=== PATIENT | male | born 1945 | race Caucasian/White ===

== ENCOUNTER 2018-05-17 09:02 | Observation (INO) | payer MEDICARE, OTHER ==
[~2018-05-17] VITALS: Ht 180.3 cm; Wt 107.0 kg
[~2018-05-17 09:02] MED LIST: AMLODIPINE BESY10 MG PO; ASPIR 8181 MG PO; ATORVASTATIN CA40 MG PO; LOSARTAN POTASS25 MG PO
[2018-05-17] MEDS ORDERED: KETOROLAC TROMETHAMINE 30 MG/ML VIAL IV NR (09:45)
--- NOTE | 2018-05-17 10:30 | Diagnostic Imaging Report ---
EXAM: CT Abdomen and Pelvis WITHOUT contrast INDICATION: Flank pain COMPARISON: None. TECHNIQUE: Abdomen and Pelvis was scanned utilizing a multidetector helical scanner without the use of IV contrast. Coronal and sagittal reformations were obtained. IV CONTRAST: None COMPLICATIONS: None RADIATION DOSE: Total DLP: 716 mGy*cm Estimated effective dose: (DLP x 0.015 x size factor) mSv CTDIvol has been reviewed. It is below the limits set by the Radiation Protocol Committee (RPC). FINDINGS: Abdomen: Lung Bases: No acute findings. Solid Organs: Several hepatic hypodensities incompletely evaluated without IV contrast large or suggest cysts, larger To small to characterize. Nonenhanced images of the adrenal glands, spleen, and pancreas unremarkable. There is moderate stranding about the right kidney with a 10 mm calculus in the proximal right ureter with mild to moderate right hydronephrosis. Tiny nonobstructing calculus inferior left kidney present. Upper GI Tract: Small hiatal hernia. No small bowel obstructive changes. Vascularity: Mild aortic vascular calcifications with no aneurysm. Lymph Nodes: No suspicious adenopathy. Other: Ventral hernia repair changes. Pelvis: Bladder: Decompressed, limiting adequate evaluation. Other: None. Colon: No acute colonic findings. Bones: Moderate degenerative changes spine. IMPRESSION: 1. 10 mm proximal right ureteral calculus with mild to moderate right hydronephrosis. Signed by: Dr. Glenn Solorio MD on 05/17/2018 10:27 AM
[2018-05-17 10:47] LABS: BASOPHILS % 0.3 % (0.0-1.0); EOSINOPHILS % 0.3 % (0.0-6.0); HEMATOCRIT 41.6 % (38.2-49.6); HEMOGLOBIN 14.8 g/dL (14.0-18.0); LYMPHOCYTES # (AUTO) 1.7 (1.0-3.2); MEAN CORPUSCULAR HEMOGLOBIN 31.2 pg (28-32); MEAN CORPUSCULAR HGB CONC 35.6 g/dL (31-35); MEAN CORPUSCULAR VOLUME 87.6 fL (81-99); MONOCYTES # (AUTO) 0.8 (0.2-0.8); MONOCYTES % 6.8 % (4.4-11.3); NEUTROPHILS # (AUTO) 9.3 (2.1-6.9); PLATELET COUNT 238 x10e3/uL (140-360); RED BLOOD COUNT 4.75 x10e6/uL (4.3-5.7); RED CELL DISTRIBUTION WIDTH 12.2 % (11.7-14.4)
[2018-05-17] MEDS ORDERED: CEFTRIAXONE SOD 1 GM VIAL ONE (12:43)
[2018-05-17] MEDS ORDERED: SODIUM CHLORIDE 0.9% 1000ML 1,000 ML ONE (12:43)
[2018-05-17] MEDS: SODIUM CHLORIDE 0.9% 1000ML 1,000 ML IV SCH ×2 (13:00→20:32)
[2018-05-17] MEDS ORDERED: CEFTRIAXONE SOD 1 GM VIAL IV ONE (13:00)
--- NOTE | 2018-05-17 14:52 | History and Physical ---
CHIEF COMPLAINT: Right-sided abdominal/flank pain. HISTORY OF PRESENT ILLNESS: This 72-year-old white man presents to [facility] emergency room with intense intermittent right flank pain. The patient states that the pain actually began 2 days prior to admission, but resolved spontaneously. The patient states that on the day of admission, namely today, the pain reoccurred and was so intense it caused him to become nauseous. In the emergency room, the patient underwent a CT of the abdomen and pelvis without contrast which revealed a urinary calculus in the right proximal ureter measuring approximately [address] of the abdomen and pelvis also revealed hydronephrosis. The patient was also found to have hematuria on urinalysis. The patient was admitted for further evaluation and treatment. REVIEW OF SYSTEMS GENERAL: No fever or chills. Weight has been stable. HEENT: No headaches; no visual changes. CARDIOVASCULAR: No chest pain, no cough. GI: Nausea today with right-sided flank pain. No vomiting, no diarrhea. The patient was experiencing right lumbar abdominal pain. : Dark urine that began this morning. Denies any gross hematuria. NEUROMUSCULAR: Complains of right flank pain as well as right lumbar abdominal pain that started 2 days ago, but became much more intense today. FAMILY HISTORY: Father of myocardial infarction at age 61. His mother lived to be 99 years old. SOCIAL HISTORY: He is retired and lives with his . No history of tobacco use. He drinks alcohol in the form of beer, usually 2 beers a day. ALLERGIES: NO KNOWN DRUG ALLERGIES. PAST SURGICAL HISTORY: 1. Cataract surgery. 2. Laparoscopic cholecystectomy. 3. Abdominal hernia repair with mesh. 4. Right-sided tympanostomy tube placement. PAST MEDICAL HISTORY: 1. Hypertension. 2. Mild obesity. 3. Hyperlipidemia. MEDICATIONS: 1. Amlodipine 10 mg daily. 2. Atorvastatin 40 mg nightly. 3. Losartan 25 mg daily. PHYSICAL EXAMINATION GENERAL: He is awake, alert, in no acute distress, very pleasant and cooperative to exam. VITAL SIGNS: Blood pressure 140/80, heart rate 82, respiratory rate 16. He is afebrile. Height is 5 feet 11 inches, weight 235 pounds. BMI is 32. INTEGUMENT: Skin is warm and dry. No pallor, jaundice, diaphoresis. HEENT: Anicteric sclerae with moist mucous membranes. NECK: Supple. CARDIOVASCULAR: Regular rate and rhythm. LUNGS: No rales, rhonchi or wheezes. ABDOMEN: Obese. He does have tenderness on palpating the right upper quadrant and right flank area. EXTREMITIES: No edema or deformity. SPINE/TORSO: The patient has mild right costovertebral angle tenderness. NEUROLOGIC: Intact. DIAGNOSES 1. Right ureterolithiasis with right hydronephrosis. 2. Hypertension. 3. Obesity. BMI 32. PLAN: 1. Intravenous fluids. 2. Pain control. 3. Antiemetics. 4. Consult urology. 5. Follow renal function. I spent 45 minutes in the care of this patient. Job#: [id number]
[2018-05-17] MEDS ORDERED: ONDANSETRON HCL INJ 2 MG/ML VIAL IV PRN ×2 (15:00→16:30)
[2018-05-17] MEDS ORDERED: HYDROMORPHONE 1MG/1ML INJ IV PRN (15:00)
[2018-05-17] MEDS ORDERED: SODIUM CHLORIDE 0.9% 1000ML 1,000 ML IV SCH (16:18)
[2018-05-17] MEDS ORDERED: FENTANYL CITRATE/PF 100MCG/2 ML INJ ONE (17:55)
[2018-05-17] MEDS ORDERED: MIDAZOLAM HCL 2 MG/2 ML VIAL ONE (17:55)
[2018-05-17 18:22] LABS: CLARITY,URINE HAZY (CLEAR); COLOR,URINE YELLOW (YELLOW); KETONES,URINE NEGATIVE (NEGATIVE); LEUKOCYTE ESTERASE ,URINE TRACE (NEGATIVE); NITRITE,URINE NEGATIVE (NEGATIVE); PROTEIN,URINE DIPSTICK 1+ (NEGATIVE)
[2018-05-17 18:23] LABS: BILIRUBIN,URINE NEGATIVE (NEGATIVE); URINE UROBILINOGEN 0.2 mg/dL (0.2 - 1)
[2018-05-17 18:27] LABS: BACTERIA,URINE FEW /HPF; RBC,URINE 21-50 /HPF (0-5)
[2018-05-17 18:30] LABS: ANION GAP 20.5 mmol/L (8-16); POTASSIUM 3.5 mmol/L (3.5-5.1)
[2018-05-17 18:31] LABS: ALBUMIN 4.1 g/dL (3.5-5.0); ALBUMIN/GLOBULIN RATIO 1.2 (0.8-2.0); CALCIUM 9.4 mg/dL (8.4-10.2); CREATININE, SERUM 1.36 mg/dL (0.72-1.25)
[2018-05-17 19:45] VITALS: BP 148/70
[2018-05-17 20:00] VITALS: BP 148/70
[2018-05-17] MEDS: HYDROMORPHONE 1MG/1ML INJ IV PRN (21:11)
--- NOTE | 2018-05-17 21:21 | Consultation ---
DATE OF CONSULTATION: May 17, 2018 UROLOGY CONSULTATION REASON FOR CONSULTATION: Obstructive uropathy. HISTORY OF PRESENT ILLNESS: Wolf Ha is a 72-year-old man whose history is only positive for having had a urinary tract infection in [place] in the 1960s. The patient denies hematuria, dysuria, urinary tract infection since then or any urolithiasis. He is normally not on any prostate medications, but does report some decreased urinary force of stream. The patient had severe right-sided flank pain, nausea and vomiting, reported to the emergency room, was evaluated and subsequently admitted. PAST MEDICAL AND SURGICAL HISTORY: 1. Status post bilateral cataract surgery. 2. Status post bilateral blepharoplasty. 3. Status post cholecystectomy. 4. Status post umbilical herniorrhaphy. 5. Hypertension. ALLERGIES: NONE KNOWN. CURRENT MEDICATIONS: Please refer to the MAR. SOCIAL HISTORY: The patient is and has supportive at the bedside. He denies smoking, alcohol or drug use. The patient is retired from [employer] at [employer]. FAMILY HISTORY: Noncontributory to the active urological problems. REVIEW OF SYSTEMS: Consistent with above history of present illness and past medical history, otherwise negative for all systems. PHYSICAL EXAMINATION: GENERAL: A very pleasant 72-year-old male, lying in bed, in no apparent distress. VITAL SIGNS: He is currently afebrile. His vital signs are currently stable. ABDOMEN: Soft, nondistended, nontender without no costovertebral angle tenderness. Kidneys not palpable without hepatosplenomegaly. No obvious evidence of hernia. GENITOURINARY: Testes descended bilaterally. Testes and epididymides bilaterally are nontender and unremarkable. The patient has a normal uncircumcised male phallus with normal meatus without any lesion. Digital rectal examination is deferred at the present time. For the remaining physical examination systems, please refer to the admission history and physical on the chart. LABORATORY STUDIES: The patient's white blood cell count is 11,900, hemoglobin 14.8, platelets 238,000. The chemistries were done, but due to computer system downtime, I do not have those results. Urinalysis is significant for large blood with 40-50 RBCs, 10-15 WBCs and few bacteria. CT scan of the abdomen and pelvis showed small stones in his left kidney that are nonobstructing. It showed a 10-mm stone in the proximal right ureter causing hydroureteronephrosis. ASSESSMENT: 1. Right ureteral stone. 2. Right hydronephrosis. 3. Left renal stones. 4. Renal cysts. 5. Microhematuria. 6. History of urinary tract infection. 7. Obesity. 8. Probable BPH. 9. Nausea and vomiting. 10. Leukocytosis. PLAN: 1. IV hydration. 2. Analgesia. 3. Cystoscopy and stent placement tomorrow. Thank you very much for involving me in the care of your patient. Will be happy to follow him along with you as well as an outpatient. Job#: [id number] GE cc:WINNIE MARIA MD
[2018-05-18] VITALS: BP 164/76
[2018-05-18] MEDS: HYDROMORPHONE 1MG/1ML INJ IV PRN ×2 (01:39→09:00)
[2018-05-18 04:00] VITALS: BP 143/71
[2018-05-18 04:28] LABS: BASOPHILS # (AUTO) 0.1 (0.0-0.1); BASOPHILS % 0.5 % (0.0-1.0); EOSINOPHILS # (AUTO) 0.1 (0.0-0.4); EOSINOPHILS % 0.9 % (0.0-6.0); HEMATOCRIT 41.4 % (38.2-49.6); HEMOGLOBIN 14.5 g/dL (14.0-18.0); LYMPHOCYTES # (AUTO) 2.9 (1.0-3.2); LYMPHOCYTES % 30.2 % (18.0-39.1); MEAN CORPUSCULAR HEMOGLOBIN 30.9 pg (28-32); MEAN CORPUSCULAR VOLUME 88.3 fL (81-99); MONOCYTES # (AUTO) 0.9 (0.2-0.8); MONOCYTES % 8.9 % (4.4-11.3); NEUTROPHILS # (AUTO) 5.8 (2.1-6.9); NEUTROPHILS % 59.3 % (38.7-80.0); PLATELET COUNT 216 x10e3/uL (140-360); RED BLOOD COUNT 4.69 x10e6/uL (4.3-5.7); RED CELL DISTRIBUTION WIDTH 12.4 % (11.7-14.4)
[2018-05-18 04:48] LABS: ALBUMIN 3.8 g/dL (3.5-5.0); ALBUMIN/GLOBULIN RATIO 1.2 (0.8-2.0); CALCIUM 9.1 mg/dL (8.4-10.2); CREATININE, SERUM 1.25 mg/dL (0.72-1.25)
[2018-05-18] MEDS ORDERED: IOPAMIDOL 300MG/ML 50ML INFUS..BTL IV ONE (06:13)
[2018-05-18] MEDS: SODIUM CHLORIDE 0.9% 1000ML 1,000 ML IV SCH ×3 (07:00→17:25)
[2018-05-18] MEDS ORDERED: ACETAMINOPHEN/CODEINE 300MG - 30MG TAB PO PRN (08:00)
[2018-05-18] MEDS ORDERED: CEFTRIAXONE SOD 1 GM VIAL ONE (08:07)
[2018-05-18] MEDS ORDERED: SODIUM CHLORIDE 0.9% 50ML 0 ML ONE (08:08)
--- NOTE | 2018-05-18 08:42 | Operative Report ---
DATE OF PROCEDURE: May 18, 2018 PREOPERATIVE DIAGNOSES 1. Right hydronephrosis. 2. Microhematuria. 3. Urinary tract infections. POSTOPERATIVE DIAGNOSES 1. Right hydronephrosis. 2. Microhematuria. 3. Urinary tract infections. OPERATIONS PERFORMED 1. Cystourethroscopy with bilateral ureteral catheterization and retrograde ureteropyelography (separate procedure performed for the urinary tract infections). 2. Interpretation of retrograde ureteropyelography. 3. Supervision of fluoroscopy. No radiologist present. 4. Cystourethroscopy with insertion of right indwelling ureteral stent (separate procedure performed to relieve hydronephrosis). ANESTHESIA: General. COMPLICATIONS: None. CLINICAL SUMMARY: Please refer to consultation dictation of the prior date. The patient has had persistent right-sided flank pain that has not abated. OPERATIVE PROCEDURE IN DETAIL: Informed consent was verified. Wolf Ha was properly identified, taken to the operating room, placed on the cystoscopy table in supine position. Anesthesia was uneventfully begun. The patient was then carefully and gently re-positioned in the dorsal lithotomy position with all pressure points well padded. His genitalia were prepared and draped in usual sterile fashion. The 22.5-Japanese cystoscope sheath with the visual obturator in place was atraumatically inserted in the patient's urethra. It was guided down the unremarkable urethra, through the normal sphincteric region, through the prostate bed, which was significant for bilobar prostatic hypertrophy with an extremely elevated median bar causing significant visual obstruction of the bladder neck. We had to torque the cystoscope sheath downward toward the floor rather significantly in order to overcome the median bar and enter the bladder. Panendoscopy revealed grade 1 to 2 trabeculations, but no tumors, no stones, no diverticula. Normally positioned and configured ureteral orifices were identified. An open-ended catheter was used to cannulate the left ureter and retrograde ureteropyelogram was performed. It was then inserted into the right ureter and retrograde ureteropyelogram was performed. With cystoscopic and fluoroscopic guidance, a right-sided indwelling ureteral stent was then placed. It was coiled in patient's upper pole paris as well as patient's bladder. The retaining suture was cut short. A hydronephrotic drip was obtained. It was blood tinged and it was sent for urine culture. Interpretation of retrograde ureteropyelography: Contrast was instilled in retrograde fashion bilaterally. The small stone noted in the upper pole of the left kidney could not be delineated on today's retrograde study. The stone that was obstructing on the right hand side was in the proximal ureter. It caused rather significant hydroureteronephrosis. The stent was in good position, coiled in patient's kidney as well as patient's bladder at the end the case. The patient's bladder was then drained. Cystoscope was withdrawn. Digital rectal examination revealed a 35-g prostate, smooth, nonfluctuant, without any nodules. The patient was then uneventfully reversed from anesthesia and taken to the recovery room in stable condition. There were no complications of the procedure. He tolerated the procedure well. Plan is to keep the patient in house at least overnight, provide him Flomax as well as analgesia. Recheck his labs in the morning and wait on final urine culture results. The patient will be brought back to the operating room on elective basis for a right ESWL. Job#: [id number] CF cc:SULY HIRSCH MD
[2018-05-18] MEDS ORDERED: TAMSULOSIN HCL 0.4 MG CAP PO ONE (08:45)
[2018-05-18] MEDS: PHENAZOPYRIDINE HCL 100 MG TAB PO SCH ×3 (09:01→17:25)
[2018-05-18 12:00] VITALS: BP 117/59
[2018-05-18 16:49] VITALS: BP 132/61
[2018-05-18] MEDS ORDERED: LIDOCAINE HCL 2% LOCAL INJ 5 ML SDV VIAL INJ ONE (17:44)
[2018-05-18] MEDS ORDERED: SEVOFLURANE INHAL SOLN 250 ML PEN BTL ONE (17:44)
[2018-05-18] MEDS ORDERED: DEXAMETHASONE SOD PHOS INJ 4 MG/ML VIAL ONE (17:44)
[2018-05-18] MEDS ORDERED: ONDANSETRON HCL INJ 2 MG/ML VIAL ONE (17:44)
[2018-05-18] MEDS ORDERED: PROPOFOL IV EMULSION 10 MG/ML 20 ML VIAL ONE (17:44)
[2018-05-18 20:00] VITALS: BP 150/70
[2018-05-18] MEDS ORDERED: TAMSULOSIN HCL 0.4 MG CAP PO SCH (21:00)
[2018-05-18 22:45] VITALS: BP 150/70
[2018-05-19] VITALS: BP 145/68
[2018-05-19 04:00] VITALS: BP 157/70
[2018-05-19 04:44] LABS: BASOPHILS % 0.1 % (0.0-1.0); EOSINOPHILS % 0.1 % (0.0-6.0); HEMATOCRIT 37.5 % (38.2-49.6); HEMOGLOBIN 13.1 g/dL (14.0-18.0); LYMPHOCYTES # (AUTO) 1.5 (1.0-3.2); LYMPHOCYTES % 19.2 % (18.0-39.1); MEAN CORPUSCULAR HEMOGLOBIN 31.3 pg (28-32); MEAN CORPUSCULAR HGB CONC 34.9 g/dL (31-35); MEAN CORPUSCULAR VOLUME 89.7 fL (81-99); MONOCYTES # (AUTO) 0.6 (0.2-0.8); MONOCYTES % 7.9 % (4.4-11.3); NEUTROPHILS # (AUTO) 5.6 (2.1-6.9); NEUTROPHILS % 72.2 % (38.7-80.0); PLATELET COUNT 222 x10e3/uL (140-360); RED BLOOD COUNT 4.18 x10e6/uL (4.3-5.7); RED CELL DISTRIBUTION WIDTH 12.4 % (11.7-14.4)
[2018-05-19 05:11] LABS: ALANINE AMINOTRANSFERASE 19 IU/L (0-55); ALBUMIN 3.4 g/dL (3.5-5.0); ALBUMIN/GLOBULIN RATIO 1.1 (0.8-2.0); ALKALINE PHOSPHATASE 56 IU/L (40-150); BLOOD UREA NITROGEN 14 mg/dL (7-26); BUN/CREATININE RATIO 13 (6-25); CALCIUM 9.2 mg/dL (8.4-10.2); CARBON DIOXIDE 26 mmol/L (22-29); CHLORIDE 109 mmol/L (98-107); CREATININE, SERUM 1.04 mg/dL (0.72-1.25); EST GLOMERULAR FILTRATION RATE > 60 ML/MIN (60-); GLUCOSE 122 mg/dL (74-118); SODIUM 144 mmol/L (136-145)
[2018-05-19] MEDS: PHENAZOPYRIDINE HCL 100 MG TAB PO SCH (08:11)
[2018-05-19] MEDS: SODIUM CHLORIDE 0.9% 1000ML 1,000 ML IV SCH (08:11)
[2018-05-19 08:23] VITALS: BP 143/63
[2018-05-19 08:42] VITALS: BP 143/63
[2018-05-19] MEDS ORDERED: CEFTRIAXONE SOD 1 GM VIAL IV SCH (09:00)
[2018-05-19] MEDS ORDERED: TYLENOL WITH C1 EACH PO (09:26)
[2018-05-19] MEDS ORDERED: PYRIDIUM100 MG PO (09:26)
[2018-05-19] MEDS ORDERED: FLOMAX0.4 MG PO (09:27)
[2018-05-19] MEDS ORDERED: CEFUROXIME500 MG PO (09:27)
--- NOTE | 2018-05-19 09:58 | Discharge Summary ---
ADMIT DIAGNOSES 1. Right ureterolithiasis with right hydronephrosis. 2. Hypertensive heart disease. 3. Acute renal failure. 4. Obesity. Body mass index 32. 5. Chronic alcohol use. 6. Urinary tract infection. DISCHARGE DIAGNOSES 1. Status post cystourethroscopy with right indwelling ureteral stent placement. 2. Acute renal failure, resolved. 3. Hypertensive heart disease. 4. Mild obesity. Body mass index 32. 5. Chronic alcohol use. 6. Urinary tract infection, resolved. HOSPITAL COURSE: This is a 72-year-old white man who was initially admitted to [facility] with the diagnosis of right hydronephrosis secondary to obstructive ureterolithiasis. He was also admitted with the diagnosis of microhematuria. During this hospitalization, the patient was seen by urologist, namely Dr. Emmanuel Batres, who performed successful cystourethroscopy with right indwelling ureteral stent placement. On admission, the patient had undergone a CT of the abdomen and pelvis, which revealed a 10-mm calculus in the proximal right ureteral with mild to moderate right hydronephrosis. The urologist, namely Dr. Batres, performed right ureteral stent placement, and started that the patient will return on Tuesday, May 22, 2018, for extracorporal shockwave lithotripsy in regard to the patient's kidney stones. The patient's hospitalization was unremarkable. The patient's acute renal failure resolved with intravenous fluids. The patient was started on intravenous antibiotics, namely ceftriaxone for his urinary tract infection. The patient's condition on discharge was stable. DISCHARGE MEDICATIONS 1. Ceftin 500 mg b.i.d. for 7 days. 2. Pyridium 200 mg t.i.d. for bladder discomfort, 50 prescribed. 3. Tylenol No. 3 one every 4 hours p.r.n. pain, 50 prescribed. 4. Flomax 0.4 mg daily. 5. Losartan 100 mg daily. 6. Amlodipine 5 mg daily. 7. Atorvastatin 40 mg at bedtime. FOLLOWUP INSTRUCTIONS: The patient was instructed to follow up with Dr. Batres on Tuesday, May 22, 2018, for extracorporal shockwave lithotripsy. The patient was instructed to follow up with his primary care physician, namely Dr. Vernon Penn, in the next 2 weeks. WINNIE MARIA MD Job#: [id number] RI cc: VERNON PENN MD MTDD
== END 2018-05-19 09:45 | disposition home or self-care (01) ==
LOC: ER 09:02 → ERHOLD 16:29 → MED/SURG 18:24
PROVIDERS: ADMIT Internal Medicine; ATTEND Internal Medicine
DX: N13.2 Hydronephrosis with renal and ureteral calculous obstruction (principal); E66.9 Obesity, unspecified; Z68.32 Body mass index [BMI] 32.0-32.9, adult; E78.5 Hyperlipidemia, unspecified; R31.29 Other microscopic hematuria; R11.2 Nausea with vomiting, unspecified; D72.829 Elevated white blood cell count, unspecified; Z87.440 Personal history of urinary (tract) infections; N17.9 Acute kidney failure, unspecified; F10.10 Alcohol abuse, uncomplicated; N39.0 Urinary tract infection, site not specified; N28.1 Cyst of kidney, acquired; N40.0 Benign prostatic hyperplasia without lower urinary tract symptoms; N18.3 Chronic kidney disease, stage 3 (moderate); I13.10 Hypertensive heart and chronic kidney disease without heart failure, with stage 1 through stage 4 chronic kidney disease, or unspecified chronic kidney disease
CPT/HCPCS: 36415 ×3; 52332; 74176; 74420; 80053 ×3; 81001; 83970; 84550 ×2; 85025 ×3; 87086 ×2; 99284; C2617; G0378 ×3; J0696 ×3; J1100; J1170 ×2; J1885; J2001; J2250; J2405; J7030 ×3; Q9967

== ENCOUNTER → 2018-05-22 | Day surgery (SDC) | payer MEDICARE ==
--- NOTE | 2018-05-19 12:03 | Diagnostic Imaging Report ---
PROCEDURE: X-RAY CHEST, TWO VIEWS COMPARISON: None. INDICATIONS: PRE-OP, RENAL STONE. DENIES CHEST COMPLAINTS FINDINGS: LUNGS: No consolidations or edema. PLEURA: No effusions or pneumothorax. HEART \T\ MEDIASTINUM: The heart is within normal size-limits. BONES \T\ SOFT TISSUES: No acute findings. Healed fracture deformity of the midshaft of the right clavicle. Degenerative disc changes of the thoracic spine. Surgical clips project over the upper abdomen on the lateral radiograph, likely related to prior cholecystectomy. CONCLUSION: No acute thoracic abnormality. Dictated by: Richard Booth M.D. on 05/19/2018 at 12:09 Electronically approved by: Richard Booth M.D. on 05/19/2018 at 12:09
[~2018-05-22] MED LIST changes: +CEFTRIAXONE SOD 1 GM VIAL ONE; +CEFUROXIME500 MG PO; +DEXAMETHASONE SOD PHOS INJ 4 MG/ML VIAL ONE; +FLOMAX0.4 MG PO; +LIDOCAINE HCL 2% LOCAL INJ 5 ML SDV VIAL INJ ONE; +ONDANSETRON HCL INJ 2 MG/ML VIAL ONE; +PROPOFOL IV EMULSION 10 MG/ML 20 ML VIAL ONE; +PYRIDIUM100 MG PO; +SEVOFLURANE INHAL SOLN 250 ML PEN BTL ONE; +TYLENOL WITH C1 EACH PO
--- NOTE | 2018-05-22 09:15 | Diagnostic Imaging Report ---
PROCEDURE:X-RAY ABDOMEN - KUB COMPARISON:CT abdomen and pelvis without contrast 05/17/2018. INDICATIONS:PREOPERATIVE XRAY FOR LITHOTRIPSY FINDINGS: Interval placement of a right internal ureteral stent. The previously described right ureteropelvic junction calculus is again noted alongside the stent. Additional nonobstructing left renal calculi are seen to better advantage on comparison CT. Large left pelvic phlebolith. Radiopaque mesh related to ventral hernia repair is partially visualized. Bowel gas pattern is nonobstructive. Regional skeletal structures are intact. CONCLUSION: Interval placement of a right internal ureteral stent. Right ureteropelvic junction calculus is unchanged in position and lies alongside the stent. Nonobstructing left renal calculi are poorly visualized by plain radiography. Dictated by: Richard Booth M.D. on 05/22/2018 at 9:13 Electronically approved by: Richard Booth M.D. on 05/22/2018 at 9:13
--- NOTE | 2018-07-21 01:36 | Operative Report ---
DATE OF PROCEDURE: May 22, 2018 PREOPERATIVE DIAGNOSIS: Right ureterolithiasis. POSTOPERATIVE DIAGNOSIS: Right ureterolithiasis. OPERATIONS PERFORMED: 1. Staged right-sided extracorporeal shock wave lithotripsy. 2. Supervision of fluoroscopy, no radiologist present. ANESTHESIA: General. COMPLICATIONS: None. CLINICAL SUMMARY: Wolf Ha is a 72-year-old man with ureterolithiasis. He has a stent in place. He is brought for ESWL. He is aware of the risks of bleeding, infection, injury to adjacent structures. He understands he will need additional procedures and he elected to proceed. OPERATIVE PROCEDURE IN DETAIL: Informed consent was verified. Wolf Ha was properly identified, taken to the operating room, and placed on the lithotripsy table in supine position. Anesthesia was uneventfully begun. The patient's right urolithiasis was localized with biplanar fluoroscopy. A total of 3000 shocks were delivered with fragmentation noted. The patient was then uneventfully reversed from anesthesia and taken to the recovery room in stable condition. There were no complications to the procedure. He tolerated the procedure well. Plans will be to return the patient to the operating room in several weeks to remove his stent, perform ureteroscopy, and laser any residual stone burden as needed. Job#: [id number]
== END | disposition home or self-care (01) ==
LOC: OR 07:08
PROVIDERS: ATTEND Urology
DX: N20.1 Calculus of ureter (principal); Z96.0 Presence of urogenital implants; I10 Essential (primary) hypertension; Z01.810 Encounter for preprocedural cardiovascular examination; Z01.818 Encounter for other preprocedural examination
CPT/HCPCS: 50590; 71046; 74018; 93005; J0696; J1100; J2001; J2405

== ENCOUNTER → 2018-07-03 | Day surgery (SDC) | payer MEDICARE ==
[2018-07-01 14:33] LABS: BASOPHILS % 0.3 % (0.0-1.0); EOSINOPHILS # (AUTO) 0.1 (0.0-0.4); EOSINOPHILS % 2.1 % (0.0-6.0); HEMATOCRIT 35.7 % (38.2-49.6); HEMOGLOBIN 11.9 g/dL (14.0-18.0); LYMPHOCYTES # (AUTO) 2.1 (1.0-3.2); LYMPHOCYTES % 31.7 % (18.0-39.1); MEAN CORPUSCULAR HEMOGLOBIN 31.3 pg (28-32); MEAN CORPUSCULAR HGB CONC 33.3 g/dL (31-35); MEAN CORPUSCULAR VOLUME 93.9 fL (81-99); MONOCYTES # (AUTO) 0.5 (0.2-0.8); NEUTROPHILS # (AUTO) 3.8 (2.1-6.9); NEUTROPHILS % 57.7 % (38.7-80.0); PLATELET COUNT 220 x10e3/uL (140-360); RED CELL DISTRIBUTION WIDTH 12.3 % (11.7-14.4)
[~2018-07-03] MED LIST changes: +FENTANYL CITRATE/PF 100MCG/2 ML INJ ONE; +GENTAMICIN 80MG/NS 100 ML 200 ML IV ONE; +IOPAMIDOL 300MG/ML 50ML INFUS..BTL IV ONE; +KETAMINE HCL INJ 50 MG/ML 10 ML VIAL ONE; +MIDAZOLAM HCL 2 MG/2 ML VIAL ONE
--- NOTE | 2018-07-03 11:33 | Diagnostic Imaging Report ---
EXAM: Abdomen 3 Views INDICATION: \S\PRE-OP \S\[id number] \S\1035 \S\ACU 1 COMPARISON: CT abdomen and pelvis 05/17/2018 FINDINGS: Mild to moderate amount of stool in the colon. No dilated loops of small bowel. Few calcified right ureteral stones measuring up to 1.4 cm, at the level of L3-L4 vertebral bodies have mildly progressed when compared to CT from 05/17/2018. Right ureteral stent has been placed and appear in adequate position. No abnormal soft tissue masses. Mild to moderate degenerative changes in the lumbar spine and pelvis. Right upper quadrant cholecystectomy clips. Metallic mesh for repair of hernia. IMPRESSION: Right ureteral stent in place with mild interval migration of the calcified ureteral stones. Signed by: Dr. Marta Chapa M.D. on 07/03/2018 11:30 AM
[2018-07-03 16:20] VITALS: BP 144/66
--- NOTE | 2018-07-03 18:36 | Diagnostic Imaging Report ---
Retrograde pyelogram COMPARISON: KUB 07/03/2018 HISTORY: Right stent replacement TECHNIQUE: Multiple abdominal spot radiographs from the procedure were made available for evaluation. RADIATION DOSE: Fluoroscopy Time: 0.28 min Dose (Kerma) Area Product: 319.1 cGycm2 Air Kerma (AK) value has been reviewed. It is below the limits set by the Radiation Protocol Committee (RPC) committee. DISCUSSION: Right ureteral stent replacement which appears in adequate position. Retrograde contrast injection in the right ureter demonstrating mild dilatation of the right renal pelvis. Previously noted calcifications adjacent to the proximal right ureteral stent are not well seen on this exam. IMPRESSION: Limited spot images from a fluoroscopic retrograde pyelogram as detailed above. Signed by: Dr. Marta Chapa M.D. on 07/03/2018 6:32 PM
--- NOTE | 2018-08-30 23:58 | Operative Report ---
DATE OF PROCEDURE: July 03, 2018 PREOPERATIVE DIAGNOSES 1. Right ureterolithiasis. 2. Right nephrolithiasis. 3. Right indwelling ureteral stent. POSTOPERATIVE DIAGNOSES 1. Right ureterolithiasis. 2. Right nephrolithiasis. 3. Right indwelling ureteral stent. OPERATIONS PERFORMED: Note these are all staged procedures as part of multistage multistep process of managing the patient's urolithiasis. 1. Cystourethroscopy with complicated removal of right indwelling ureteral stent (separate procedure performed with separate scope). 2. Right semi-rigid and flexible ureteroscopy with Holmium laser lithotripsy of 3 large ureteral stones and stent placement of a stent (separate procedure performed for the ureterolithiasis). 3. Right ureteroscopy with Holmium laser lithotripsy of right nephrolithiasis (separate procedure performed for the nephrolithiasis). 4. Radiological services for supervision and interpretation of ureteroscopy. 5. Interpretation of retrograde ureteropyelography. 6. Supervision of fluoroscopy. No radiologist present. ANESTHESIA: General. COMPLICATIONS: None. CLINICAL SUMMARY: Wolf Ha is a 72-year-old man with right-sided urolithiasis. He underwent ESWL of a 10-mm stone. Now, he is left with 3 large proximal ureteral stones and 1 small renal stone. He is brought for management as a 2nd-stage procedure. He is aware of the risks of bleeding, infection, injury to adjacent structures, need for additional procedures, and elected to proceed. OPERATIVE PROCEDURE IN DETAIL: Informed consent was verified. Wolf Ha was properly identified, taken to operating room, placed on the cystoscopy table in supine position. Anesthesia was uneventfully begun. The patient was then carefully and gently repositioned in the dorsal lithotomy position with all pressure points well padded. His genitalia were prepared draped in usual sterile fashion. The 22.5-Hungarian cystoscope sheath with the visual obturator in place was atraumatically inserted into the patient's urethra. It was guided down an unremarkable distal urethra past a normal sphincteric region through the prostate bed was significant for visually obstructing BPH and into the patient's bladder, which exhibited trabeculations, but no stones. No suspicious mucosal lesions were noted. A stent was noted to be emerging on the right ureteral orifice. A guidewire was then placed alongside the stent and guided at the level of the patient's kidney. The stent was then grasped, completely removed, and discarded. Semirigid ureteroscopy was atraumatically performed to the distal ureter. It did not exhibit any stones in that portion of the ureter. Secondary guidewire was left in place and the flexible ureteroscope was then brought up and over the secondary guidewire and guided to the level of patient's proximal ureter. We identified 3 large stones. These stones were progressively pulverized with a Holmium laser. Once we completely cleared the ureter, we gave our attention to the kidney stone. The patient has had a residual kidney stone. This kidney stone underwent Holmium laser lithotripsy and we pulverized this significantly sized stone into large amount of fine sand. With cystoscopic fluoroscopic guidance, a right-sided indwelling ureteral stent was then placed. It was coiled in patient's kidney, as well as patient's bladder. The retaining suture was cut short. Interpretation of retrograde ureteropyelography: Contrast was instilled in retrograde fashion via the ureteroscope. There was chronic fullness of the right-sided collecting system. There was no extravasation. The stent was in good position, coiled in the patient's kidney, as well as patient's bladder at the end of the case. The patient was uneventfully reversed from anesthesia and taken to recovery room in stable condition. There were complications to the procedure. He tolerated the procedure well. Explicit postop instructions were given. Will plan to return the patient to the operating room for removal of his stent and additional ureteroscopy and hopefully rendering the patient stent-free and stone-free. JEROME ORDONEZ MD Job#: [id number] CQ
== END | disposition home or self-care (01) ==
LOC: OR 09:58
PROVIDERS: ATTEND Urology
DX: N20.1 Calculus of ureter (principal); N20.0 Calculus of kidney; Z46.6 Encounter for fitting and adjustment of urinary device; N40.1 Benign prostatic hyperplasia with lower urinary tract symptoms; N13.8 Other obstructive and reflux uropathy; N32.89 Other specified disorders of bladder; I10 Essential (primary) hypertension; Z01.812 Encounter for preprocedural laboratory examination; Z87.891 Personal history of nicotine dependence
CPT/HCPCS: 36415; 52356; 74420; 85025; 88300; C1758; C2617; J0696; J1100; J1580; J2001; J2250; J2405; Q9967; 74018

== ENCOUNTER → 2018-07-31 | Day surgery (SDC) | payer MEDICARE ==
[2018-07-30 13:51] LABS: BASOPHILS % 0.3 % (0.0-1.0); EOSINOPHILS # (AUTO) 0.1 (0.0-0.4); EOSINOPHILS % 1.7 % (0.0-6.0); HEMATOCRIT 40.1 % (38.2-49.6); HEMOGLOBIN 13.3 g/dL (14.0-18.0); LYMPHOCYTES # (AUTO) 2.1 (1.0-3.2); LYMPHOCYTES % 34.2 % (18.0-39.1); MEAN CORPUSCULAR HEMOGLOBIN 30.4 pg (28-32); MEAN CORPUSCULAR HGB CONC 33.2 g/dL (31-35); MEAN CORPUSCULAR VOLUME 91.6 fL (81-99); MONOCYTES # (AUTO) 0.5 (0.2-0.8); MONOCYTES % 7.6 % (4.4-11.3); NEUTROPHILS # (AUTO) 3.4 (2.1-6.9); NEUTROPHILS % 55.9 % (38.7-80.0); PLATELET COUNT 275 x10e3/uL (140-360); RED BLOOD COUNT 4.38 x10e6/uL (4.3-5.7); RED CELL DISTRIBUTION WIDTH 11.9 % (11.7-14.4)
[~2018-07-31] MED LIST changes: +GENTAMICIN 80MG/NS 100 ML 100 ML IV ONE; -GENTAMICIN 80MG/NS 100 ML 200 ML IV ONE; -IOPAMIDOL 300MG/ML 50ML INFUS..BTL IV ONE; +IOPAMIDOL 610MG/1ML 300 MG/ML VIAL IV ONE; -KETAMINE HCL INJ 50 MG/ML 10 ML VIAL ONE
--- NOTE | 2018-07-31 12:00 | Diagnostic Imaging Report ---
EXAM: Abdomen 2 Views INDICATION: \S\PRE-OP CYSTO, STENT REMOVAL \S\ACU 2 COMPARISON: Retrograde pyelogram on 07/03/2018 and KUB on 07/03/2018 FINDINGS: Moderate of stool in the colon. No dilated loops of small bowel. Right ureteral stent in adequate position. No calcifications overlying the collecting system, bilaterally. Calcification overlying the right and left side of the pelvis likely phlebolith. Metallic mesh overlying the abdomen. Right upper quadrant cholecystectomy clips. No abnormal soft tissue masses. Moderate degenerative changes in the lumbar spine and pelvis. IMPRESSION: Right ureteral stent without visualized calcified stones. Signed by: Dr. Marta Chapa M.D. on 07/31/2018 11:57 AM
[2018-07-31 16:25] VITALS: BP 159/87
--- NOTE | 2018-07-31 16:25 | Diagnostic Imaging Report ---
Retrograde pyelogram COMPARISON: KUB 07/03/2018 and retrograde bilateral 07/03/2018. KUB 07/31/2018 HISTORY: Right stent replacement TECHNIQUE: Multiple abdominal spot radiographs from the procedure were made available for evaluation. RADIATION DOSE: Fluoroscopy Time: 0.3 min Dose (Kerma) Area Product: 376.9 cGycm2 Air Kerma (AK) value has been reviewed. It is below the limits set by the Radiation Protocol Committee (RPC) committee. DISCUSSION: Placement of right ureteral stent which appears in adequate position. Mild hydronephrosis. IMPRESSION: Limited spot images from a fluoroscopic retrograde pyelogram as detailed above. Signed by: Dr. Marta Chapa M.D. on 07/31/2018 4:22 PM
--- NOTE | 2018-09-01 03:12 | Operative Report ---
DATE OF PROCEDURE: July 31, 2018 PREOPERATIVE DIAGNOSES 1. Right urolithiasis. 2. Right indwelling ureteral stent. POSTOPERATIVE DIAGNOSES 1. Right nephrolithiasis. 2. Right ureterolithiasis. 3. Right indwelling ureteral stent. OPERATIONS PERFORMED: Note these are all staged procedures as part of multistage multistep process of managing patient's urolithiasis. 1. Cystourethroscopy with complicated removal of right indwelling ureteral stents (separate procedure performed for the diagnosis of stent done with separate scope). 2. Right semirigid ureteroscopy with Holmium laser lithotripsy and placement of stent. 3. Right ureteroscopy with Holmium laser lithotripsy of extensive steinstrasse and placement of stent (separate procedure performed for the right ureterolithiasis). 4. Right flexible ureteropyeloscopy with Holmium laser lithotripsy (separate procedure performed for the right nephrolithiasis). 5. Urological services for supervision and interpretation of ureteroscopy. 6. Interpretation of retrograde ureteropyelography. 7. Supervision of fluoroscopy. No radiologist present. ANESTHESIA: General. COMPLICATIONS: None. CLINICAL SUMMARY: Wolf Ha is a 72-year-old man with an indwelling ureteral stent. He has had prior ESWL. He was brought for the above procedures. He is aware of the risks of bleeding, infection, injury to adjacent structures, need for additional procedures, and elected to proceed. OPERATIVE PROCEDURE IN DETAIL: Informed consent was verified. Wolf Ha was properly identified, taken to operating room, placed on the cystoscopy table in supine position. Anesthesia was uneventfully begun. The patient was then carefully and gently repositioned in dorsal lithotomy position with all pressure points well padded. His genitalia were prepared and draped in usual sterile fashion. The 22.5-Arabic cystoscope sheath with the visual obturator in place was atraumatically inserted per patient's urethra. It was guided down the unremarkable urethra, past the normal sphincteric region through the prostate bed significant for prostatic hypertrophy with the visual obstruction going to the patient's bladder, where we identified a stent emerging from the right ureteral orifice and it was mildly encrusted. A guidewire was then placed alongside the stent and guided to the level of the patient's kidney. That stent was then grasped and fully removed and discarded. Semirigid ureteroscope was then inserted alongside the guidewire and into the distal right ureter. We did not identify any stones. A secondary guidewire was left in place. Flexible ureteroscope was then brought up over the secondary guidewire to the more proximal portion of the right ureter, where we identified a rather significant amount of stone burden. We proceeded with performing Holmium laser lithotripsy of this patient's steinstrasse until all the patient's stones were pulverized in smaller stones. We then guided the ureteroscope into the patient's kidney. We identified nephrolithiasis. We proceeded with performing Holmium laser lithotripsy and pulverizing all stones that we visualized into smaller fragments that should be passable. With cystoscopic fluoroscopic guidance, a right-sided indwelling ureteral stent was then placed. It was coiled in the patient's kidney, as well as patient's bladder. The retaining suture was cut short. Patient's bladder was drained. The cystoscope was withdrawn and the patient was uneventfully reversed from anesthesia and taken to recovery room in stable condition. There were no complications to the procedure. He tolerated the procedure well. Explicit postop instructions were given and will then plan on returning the patient to the operating room for similar procedure in the near future. Job#: [id number] CQ
== END | disposition home or self-care (01) ==
LOC: OR 10:45
PROVIDERS: ATTEND Urology
DX: N20.1 Calculus of ureter (principal); N20.0 Calculus of kidney; Z46.6 Encounter for fitting and adjustment of urinary device; N40.1 Benign prostatic hyperplasia with lower urinary tract symptoms; N13.8 Other obstructive and reflux uropathy; I10 Essential (primary) hypertension; Z01.812 Encounter for preprocedural laboratory examination
CPT/HCPCS: 36415; 52356; 74420; 85025; 88300; C2617; J0696; J1100; J1580; J2001; J2250; J2405; J2704; Q9967; 74018

== ENCOUNTER → 2018-08-19 | Day surgery (SDC) | payer MEDICARE ==
[~2018-08-19] MED LIST changes: +BELLADONNA/OPIUM 60 MG SUPP PR ONE; -GENTAMICIN 80MG/NS 100 ML 100 ML IV ONE
--- NOTE | 2018-08-19 07:09 | Diagnostic Imaging Report ---
PROCEDURE:X-RAY ABDOMEN - KUB COMPARISON:KUB 07/31/2018. INDICATIONS:PRE-OP KIDNEY STONE SURGERY FINDINGS: Appropriately positioned right internal ureteral stent. No calcifications are identified over the collecting system, alongside the stent, or over the urinary bladder with the exception of multiple round lucent centered pelvic calcifications, unchanged presumably representing phleboliths. Surgical material probably related to ventral hernia repair projects over the low abdomen. Skeletal structures are intact with degenerative disc changes of the thoracolumbar spine and degenerative joint disease of the hips. Bowel gas pattern is nonobstructive. Cholecystectomy clips. CONCLUSION: Appropriately positioned right internal ureteral stent, without evidence of encrustation or associated calculus. Dictated by: Richard Booth M.D. on 08/19/2018 at 7:18 Electronically approved by: Richard Booth M.D. on 08/19/2018 at 7:18
[2018-08-19 10:30] VITALS: BP 122/64
--- NOTE | 2018-08-31 00:17 | Operative Report ---
DATE OF PROCEDURE: August 19, 2018 PREOPERATIVE DIAGNOSES 1. Right urolithiasis. 2. Right indwelling ureteral stent. POSTOPERATIVE DIAGNOSES 1. Right nephrolithiasis. 2. Right indwelling ureteral stent. OPERATIONS PERFORMED: Note these are all staged procedures as part of multistage, multistep process of managing patient's urolithiasis. 1. Cystourethroscopy with complicated removal of right indwelling ureteral stent (separate procedure performed for diagnosis of stent done with separate scope). 2. Numerous right-sided ureteropyeloscopy and stone manipulation and extraction (separate procedure performed for more than 20 stone fragments that the patient has failed to pass out of his right kidney). 3. Radiological services for supervision and interpretation of ureteroscopy. 4. Interpretation of retrograde ureteropyelography. 5. Supervision of fluoroscopy. No radiologist present. ANESTHESIA: General. COMPLICATION: None. CLINICAL SUMMARY: Wolf Ha is a 72-year-old man, who underwent ESWL of a very large stone. This left him with 3 large proximal ureteral stones and 1 large kidney stone. He underwent Holmium laser lithotripsy of all the stones and replacement of the stents. Patient is brought to the operating room in hopes of rendering him stone-free and stent-free. He is aware of the risks of bleeding, infection, injury to adjacent structures, need for additional procedures, and elected to proceed. OPERATIVE PROCEDURE IN DETAIL: Informed consent verified. Wolf Ha was properly identified, taken to operating room, placed on the cystoscopy table in supine position. Anesthesia was uneventfully begun. The patient was then carefully gently repositioned in the dorsal lithotomy position with all pressure points well padded. His genitalia were prepared and draped in usual sterile fashion. The 22.5-Australian cystoscope sheath with the visual obturator in place was atraumatically inserted in the patient's urethra. It was guided down unremarkable distal urethra through his normal sphincteric region, through the prostate bed, was significant for trilobar prostatic hypertrophy with a prominent median lobe. We entered the patient's bladder and it exhibited some stone fragments and a stent emerging from the right ureteral orifice. A guidewire was then placed alongside the stent and guided to the level of patient's kidney. The stent was then grasped, completely removed, then discarded. Flexible ureteroscope was placed over the guidewire up into the patient's right kidney, where we identified Brennan plaques present throughout most papilla and we also identified multiple stone fragments. Utilizing a Nitinol tipless basket, we grasped stone fragments and then, extracted them, reintroduced the ureteroscope, grasped for the stone fragment and extracted them. This maneuvering was performed for approximately 2 dozen stones. All that was left behind was very fine sand. Once we were ensured that only fine sand remained in the patient's kidney, we irrigated the sand to make sure it was mobilized from the mucosa and should be easily passable. We carefully examined the ureter as we exited. It exhibited no stones, whatsoever. There were no strictures. There were no suspicious lesions of the upper tracts. Patient's bladder was then drained. Cystoscope was withdrawn. The patient was uneventfully reversed from anesthesia and taken to recovery room in stable condition. There were no complications to procedure. He tolerated the procedure well. Explicit postoperative instructions were given. Will follow the patient up in the office. At which point in time, will perform uroflowmetry and bladder ultrasonography. Interpretation of retrograde ureteropyelography: Contrast was instilled in retrograde fashion on right hand side via the ureteroscope. There were no suspicious lesions. There was some chronic-appearing mild fullness. No obvious filling defects were noted and unobstructed drainage was observed fluoroscopically at the end of the case. JEROME ORDONEZ MD Job#: [id number] CQ
== END | disposition home or self-care (01) ==
LOC: OR 05:51
PROVIDERS: ATTEND Urology
DX: N20.0 Calculus of kidney (principal); Z46.6 Encounter for fitting and adjustment of urinary device; N40.0 Benign prostatic hyperplasia without lower urinary tract symptoms; N28.89 Other specified disorders of kidney and ureter; I10 Essential (primary) hypertension
CPT/HCPCS: 52352; 74420; 88300; C1766; J0696; J1100; J2001; J2250; J2405; J2704; Q9967; 74018

== ENCOUNTER 2019-02-19 17:42 | Emergency (ER) | payer MEDICARE ==
[~2019-02-19] VITALS: Ht 180.3 cm; Wt 107.0 kg
[~2019-02-19 17:42] MED LIST changes: -BELLADONNA/OPIUM 60 MG SUPP PR ONE; -CEFTRIAXONE SOD 1 GM VIAL ONE; -DEXAMETHASONE SOD PHOS INJ 4 MG/ML VIAL ONE; -FENTANYL CITRATE/PF 100MCG/2 ML INJ ONE; -IOPAMIDOL 610MG/1ML 300 MG/ML VIAL IV ONE; -LIDOCAINE HCL 2% LOCAL INJ 5 ML SDV VIAL INJ ONE; -MIDAZOLAM HCL 2 MG/2 ML VIAL ONE; -ONDANSETRON HCL INJ 2 MG/ML VIAL ONE; -PROPOFOL IV EMULSION 10 MG/ML 20 ML VIAL ONE; -SEVOFLURANE INHAL SOLN 250 ML PEN BTL ONE
[2019-02-19] MEDS ORDERED: HYDROCODONE/APAP 10MG-325MG TAB PO ONE (18:00)
--- NOTE | 2019-02-19 20:26 | Diagnostic Imaging Report ---
Left-sided ribs with AP chest 6 views HISTORY: Pain status post fall. COMPARISON: None FINDINGS: Displaced fractures of the 10th and 11th left lateral ribs. Multilevel degenerative changes of the thoracal lumbar spine. Chest: The cardiac silhouette is mildly enlarged. Left basilar subsegmental atelectasis. Trace left pleural effusion. No pneumothorax. Remote healed fracture of the right clavicle. IMPRESSION: Displaced fractures of the 10th and 11th left lateral ribs. Signed by: Dr. Kirby Lino M.D. on 02/19/2019 8:22 PM
--- NOTE | 2019-02-19 20:45 | NUR ---
incentive spirometer provided to patient. pt instructed on using IS. pt able to perform is to [phone].
[2019-02-19] MEDS ORDERED: LIDOCAINE 5% PATCH TP ONE (21:00)
[2019-02-19 21:51] VITALS: BP 152/77
== END 2019-02-19 21:53 | disposition home or self-care (01) ==
LOC: ER 17:42
DX: S22.42XA Multiple fractures of ribs, left side, initial encounter for closed fracture (principal); W01.198A Fall on same level from slipping, tripping and stumbling with subsequent striking against other object, initial encounter; Y93.E1 Activity, personal bathing and showering; Y92.002 Bathroom of unspecified non-institutional (private) residence as the place of occurrence of the external cause; I10 Essential (primary) hypertension
CPT/HCPCS: 71101; 99283

== ENCOUNTER → 2019-04-14 | Outpatient (CLI) | payer MEDICARE ==
--- NOTE | 2019-04-14 11:51 | Diagnostic Imaging Report ---
Exam: Abdominal film Clinical History: Renal stones Comparison: KUB 08/19/2018 DISCUSSION: Interval removal of right ureteral stent. No suspicious calcifications project over the renal shadows or expected ureteral courses. Multiple pelvic phleboliths are again noted. Bowel gas pattern is nonobstructive. Surgical material likely related to ventral hernia repair. Regional skeletal structures are intact. Surgical clips project over the right upper quadrant compatible with cholecystectomy. IMPRESSION: Interval removal of right internal ureteral stent. No plain film evidence of urolithiasis. Signed by: Dr. Richard Booth M.D. on 04/14/2019 11:48 AM
== END ==
LOC: RAD 11:16
PROVIDERS: ATTEND Urology
DX: N20.0 Calculus of kidney (principal)
CPT/HCPCS: 74018

== ENCOUNTER → 2021-05-18 | Outpatient (CLI) | payer MEDICARE, OTHER | LOC: RAD 14:43 | PROVIDERS: ATTEND Urology | DX: N20.0 Calculus of kidney (principal) | CPT/HCPCS: 74018 ==

== ENCOUNTER → 2021-11-07 | Outpatient (CLI) | payer MEDICARE, OTHER ==
[~2021-11-07] MED LIST changes: +IOPAMIDOL 370 MG/ML 200 ML INFUS..BTL INJ ONE; +SODIUM CHLORIDE 0.9% 50ML 50 ML ONE
[2021-11-07 15:01] LABS: CREATININE, SERUM 1.24 mg/dL (0.72-1.25)
== END ==
LOC: CT 14:05
PROVIDERS: ATTEND Family Medicine
DX: R10.0 Acute abdomen (principal)
CPT/HCPCS: 36415; 74177; 82565; 84520; Q9967

== ENCOUNTER → 2025-05-09 | Day surgery (SDC) | payer MEDICARE, OTHER ==
[2025-05-06 11:07] LABS: BASOPHILS % 0.7 % (0.0-1.0); EOSINOPHILS % 3.1 % (0.0-6.0); LYMPHOCYTES % 41.7 % (18.0-39.1); MONOCYTES % 12.8 % (4.4-11.3); NEUTROPHILS % 41.2 % (38.7-80.0); RED CELL DISTRIBUTION WIDTH 14.3 % (11.7-14.4)
[~2025-05-09] MED LIST changes: +B-121000 MC2; +FENTANYL CITRATE/PF 100MCG/2 ML INJ ONE; +GLUCAGON FOR INJ 1 MG VIAL ONE; -IOPAMIDOL 370 MG/ML 200 ML INFUS..BTL INJ ONE; +LACTATED RINGER'S 1,000 ML ONE; +LIDOCAINE HCL 2% LOCAL INJ 5 ML SDV VIAL INJ ONE; +MELOXICAM7.5 MG PO; +MIDAZOLAM HCL 2 MG/2 ML VIAL ONE; +POTASSIUM CHLO10 ME1 PO; +PROPOFOL IV EMULSION 10 MG/ML 20 ML VIAL ONE; -SODIUM CHLORIDE 0.9% 50ML 50 ML ONE; +TESTOSTERONE SHOT; +VITAMIN D250 MC1
[2025-05-09 12:12] VITALS: TEMP 97.1
[2025-05-09 12:40] VITALS: BP 155/78; PULSE 76; RESP 16; O2SAT 98
== END | disposition home or self-care (01) ==
LOC: OR 09:34
PROVIDERS: ATTEND Internal Medicine Gastroenterology
DX: Z09 Encounter for follow-up examination after completed treatment for conditions other than malignant neoplasm (principal); D12.3 Benign neoplasm of transverse colon; K92.1 Melena; K59.09 Other constipation; K64.8 Other hemorrhoids; N40.0 Benign prostatic hyperplasia without lower urinary tract symptoms; I10 Essential (primary) hypertension; Z71.89 Other specified counseling; I25.10 Atherosclerotic heart disease of native coronary artery without angina pectoris; Z01.810 Encounter for preprocedural cardiovascular examination; Z01.812 Encounter for preprocedural laboratory examination; Z79.1 Long term (current) use of non-steroidal anti-inflammatories (NSAID); Z68.32 Body mass index [BMI] 32.0-32.9, adult; Z71.3 Dietary counseling and surveillance
CPT/HCPCS: 36415; 45385; 85025; 88305; 93005; J1610; J2003; J2250; J2704; J3010; J7121; 45378

== ENCOUNTER → 2025-06-14 | Outpatient (REF) | payer MEDICARE, OTHER ==
[~2025-06-14] MED LIST changes: -FENTANYL CITRATE/PF 100MCG/2 ML INJ ONE; -GLUCAGON FOR INJ 1 MG VIAL ONE; -LACTATED RINGER'S 1,000 ML ONE; -LIDOCAINE HCL 2% LOCAL INJ 5 ML SDV VIAL INJ ONE; -MIDAZOLAM HCL 2 MG/2 ML VIAL ONE; -PROPOFOL IV EMULSION 10 MG/ML 20 ML VIAL ONE
== END ==
LOC: DX 08:23
PROVIDERS: ATTEND Nurse Practitioner
DX: Z86.0100 Personal history of colon polyps, unspecified (principal)
CPT/HCPCS: 74270